=== PATIENT | male | born 1945 | race Caucasian/White ===

== ENCOUNTER 2017-05-28 10:16 | Day surgery (SDC) | payer OTHER, BC ==
[2017-05-27 13:18] VITALS: BMI 36.1
--- NOTE | 2017-05-28 10:53 | HP ---
Satellite [facility] [place] - Chief Complaint Chief Complaint: left shoulder pain - Past Medical History Allergies/Adverse Reactions: Allergies Allergy/AdvReac Type Severity Reaction Status Date / Time No Known Drug Allergies Allergy Verified 05/27/17 13:31 - Current Medications Current Medications: Home Medications Medication Instructions Recorded Candesartan Cilexetil [Atacand] 8 mg PO HS 10/10/13 Insulin Glargine,Hum.rec.anlog 35 units SQ HS 10/10/13 [Lantus Solostar PEN -] Insulin Lispro [Humalog] 15 units SQ TID PRN 10/10/13 Aspirin [ASA -] 81 mg PO DAILY #0 tab.chew 10/13/13 Folic Acid/Vitamin B Comp W-C 0.8 mg PO DAILY 03/05/15 [Renavit Tablet] Furosemide [Lasix -] 20 mg PO DAILY 03/05/15 Levothyroxine [Synthroid -] 75 mcg PO DAILY 03/05/15 Metoprolol Tartrate [Lopressor] 100 mg PO DAILY 03/05/15 Pregabalin [Lyrica -] 100 mg PO BID 03/05/15 Rosuvastatin Calcium [Crestor] 20 mg PO HS 03/05/15 Tamsulosin HCl [Flomax] 0.4 mg PO DAILY 03/05/15 Allopurinol [Zyloprim -] 100 mg PO HS 05/27/17 Cholecalciferol (Vitamin D3) 50,000 unit PO WEEKLY 05/27/17 [D3-50] Satellite Physical Exam - Physical Examination Vital Signs: Vital Signs Period Temp Pulse Resp BP Sys/Harris Pulse Ox Last 24 Hr 98.5 F 89 18 128/66 96 Extremities: Other (weakness with thumb down abduction) Satellite Impression/Plan - Impression/Plan Impression: left rotator cuff tear Operative Procedure: arthroscopy left shoulder with rotator cuff repair Date to be Performed: 05/28/17
[2017-05-28] MEDS ORDERED: ROPIVACAINE HCL 0.5% 30ML VIAL ONE (10:56)
[2017-05-28] MEDS ORDERED: MIDAZOLAM HCL 2 MG/2 ML SINGLE DOSE VIAL ONE ×2 (10:58)
[2017-05-28] MEDS ORDERED: ceFAZolin SODIUM 1 GM VIAL IVPB ONE (12:15)
[2017-05-28] MEDS ORDERED: PROPOFOL 20 ML ONE (12:35)
[2017-05-28] MEDS ORDERED: ceFAZolin SODIUM 1 GM VIAL ONE ×3 (12:50→16:37)
[2017-05-28] MEDS ORDERED: LIDOCAINE HCL/PF 2% SDV 5ML VIAL ONE ×2 (12:58→13:05)
[2017-05-28] MEDS ORDERED: DEXAMETHASONE SOD PHOSPHATE 4 MG/1 ML VIAL ONE (13:05)
[2017-05-28] MEDS ORDERED: ePHEDrine SULFATE 50 MG/1 ML AMPULE ONE (13:10)
--- NOTE | 2017-05-28 13:39 | OP ---
Operative Note - Note: Operative Date: 05/28/17 ([facility]) Pre-Operative Diagnosis: left shoulder rct Operation: left shoulder arthroscopy with RCR, SAD Implants: arthrex speedbridge Post-Operative Diagnosis: Same as Pre-op Surgeon: Quincy Corona Supervisor Production: Foreign Mendoza Anesthesiologist/SKIVER BOX TOE: Sundeep López Anesthesia: General, Local Specimens Removed: shavings Estimated Blood Loss (mls): 5 Operative Report Dictated: Yes
[2017-05-28 17:19] VITALS: BP 122/68; PULSE 88
[2017-05-28 17:57] VITALS: TEMP 97.4
--- NOTE | 2017-06-01 12:52 | SPEC ---
DATE OF OPERATION: 05/28/2017 PREOPERATIVE DIAGNOSIS: Left rotator cuff tear. POSTOPERATIVE DIAGNOSIS: Left rotator cuff tear. PROCEDURE: Left shoulder arthroscopy, subacromial decompression, and SpeedBridge rotator cuff repair. SURGICAL ATTENDING: Quincy Corona MD RN NEUROLOGY: ANITA Martinez ANESTHESIA: Regional and general. CLOSURE: A SpeedBridge for rotator cuff and 3-0 nylon for skin. ESTIMATED BLOOD LOSS: Negligible. COMPLICATIONS: None. CONDITION: To the recovery room in stable condition. DESCRIPTION OF PROCEDURE: The patient was taken to the operating room on May 28, 2017. General and regional anesthesia was administered by the anesthesiologist. IV Kefzol was administered prophylactically prior to the case. The patient was placed in the beach chair position with all prominences well padded. The left shoulder area was prepped and draped in the usual sterile fashion. First, a diagnostic arthroscopy of the glenohumeral joint was made. Posterior portal was made 2 fingerbreadths below the acromion with a 15 blade followed by a blunt trocar. Circumferential exam of the glenohumeral joint revealed the following: Intact labrum circumferentially, intact glenoid and humeral head articular cartilage, intact biceps and biceps anchor, intact subscapularis through its insertion. Looking superiorly, there was a large rotator cuff tear. The fluid was drained from the shoulder, and the trocar was removed. The posterior trocar was redirected in the subacromial space. An accessory lateral and anterior portal were made with a 15 blade followed by a blunt trocar. The lateral portal was used as the working portal. Through this portal, an ArthroCare device was applied. This was used to debride the soft tissue in the subacromial aspect. The coracoacromial ligament was identified and detached off the anterior acromion and was visualized to drop inferiorly and was further debrided. The bone on the undersurface of the acromion was burred to the appropriate level giving appropriate height for the rotator cuff beneath. Looking inferiorly, there was a large rotator cuff tear, soft tissue encasing the rotator cuff, and the deltoid recess was debrided using ArthroCare device and the shaver. The bed on the greater tuberosity was burred to give a good bed for the double row SpeedBridge repair. A grasper was used to ensure that the rotator cuff was able to be reduced sufficiently to the greater tuberosity. The rotator cuff was freed on the bursal and the articular surface to allow more excursion of the tendon. Two anchors preloaded with FiberTape suture were placed on the articular margin, one more anteriorly, one more posteriorly. They were shuttled through the anterior portal with a grasper. Each limb was individually passed through the rotator cuff, two anteriorly and two posteriorly. One anterior limb and one posterior limb was delivered through the lateral portal. They were placed through the eyelet hole of the more lateral anchor, which was then malleted into place much more laterally, reducing the rotator cuff to the greater tuberosity. The swivel was then screwed into place. The sutures were then cut flush with the bone. Next, one anterior and one posterior limb that was remaining were shuttled from the anterior to the lateral portal. The sutures were placed through the eyelet hole of the anterior anchor, which was malleted on the anterior aspect of the greater tuberosity. After tensioning it, it was deployed the entire way and then screwed home giving an excellent reduction to the anterior portion of the rotator cuff. After the sutures were cut, the rotator cuff was probed and found to have good stability with excellent matting down of the rotator cuff to the greater tuberosity. The shoulder was taken through the range of motion and found to have good clearance on the undersurface of the acromion with good, solid repair. The shoulder was drained of the fluid. The portals were closed with 3-0 nylon suture. A sterile pressure dressing followed by a shoulder immobilizer was applied. The patient was awoken from anesthesia and transferred to recovery room in stable condition. No complications. Estimated blood loss negligible. Gabriella [id number]
--- NOTE | 2017-06-01 16:53 | PATH ---
Surgical Pathology Report Patient Name: MARY SAMANO Med. Rec. #: [id number] /Age/Gender: 1945 (Age: 72) / M Account: [id number] Location: [facility] SUR[facility] Taken: 05/28/2017 Received: 05/31/2017 Reported: 06/01/2017 Physicians: Quincy Corona M.D. Specimen(s) Received LEFT SHOULDER SHAVINGS Clinical History Left shoulder impingement syndrome/rotator cuff tear Final Diagnosis SHOULDER SHAVINGS, LEFT, ARTHROSCOPY: BENIGN FIBROCARTILAGINOUS TISSUE AND SYNOVIUM. Electronically Signed Patito Duque M.D. Gross Description Received in formalin, labeled "left shoulder shavings," is a 5.0 x 3.7 x 0.5 cm. aggregate of lam-yellow soft tissue fragments. A admitting representative portion is submitted in one cassette. /05/31/201705/31/2017
== END 2017-05-28 17:22 | disposition home or self-care (01) ==
LOC: JASU-SURG 10:16
PROVIDERS: ATTEND Orthopaedic Surgery
PROC: 0LQ24ZZ Repair Left Shoulder Tendon, Percutaneous Endoscopic Approach (ICD-10-PCS; 2017-05-28)
PROC: 0RNK4ZZ Release Left Shoulder Joint, Percutaneous Endoscopic Approach (ICD-10-PCS; principal; 2017-05-28 10:45)
DX: M75.102 Unspecified rotator cuff tear or rupture of left shoulder, not specified as traumatic (principal)
CPT/HCPCS: 88304-TC; 94760

== ENCOUNTER 2018-10-05 08:31 | Day surgery (SDC) | payer OTHER ==
[2018-10-04 14:06] VITALS: BMI 36.8
--- NOTE | 2018-10-05 09:12 | HP ---
Satellite H - Chief Complaint Chief Complaint: right hand pain/numbness - Past Medical History Allergies/Adverse Reactions: Allergies Allergy/AdvReac Type Severity Reaction Status Date / Time No Known Drug Allergies Allergy Verified 10/05/18 08:48 - Current Medications Current Medications: Home Medications Medication Instructions Recorded Candesartan Cilexetil [Atacand] 8 mg PO HS 10/10/13 Insulin Glargine,Hum.rec.anlog 30 units SQ ASDIR 10/10/13 [Lantus Solostar PEN -] Insulin Lispro [Humalog] 15 units SQ TID PRN 10/10/13 Aspirin [ASA -] 81 mg PO DAILY #0 tab.chew 10/13/13 Furosemide [Lasix -] 20 mg PO DAILY 03/05/15 Levothyroxine [Synthroid -] 88 mcg PO DAILY 03/05/15 Metoprolol Tartrate [Lopressor] 50 mg PO DAILY 03/05/15 Pregabalin [Lyrica -] 100 mg PO BID 03/05/15 Rosuvastatin Calcium [Crestor] 20 mg PO HS 03/05/15 Tamsulosin HCl [Flomax -] 0.4 mg PO DAILY 03/05/15 Allopurinol [Zyloprim -] 100 mg PO HS 05/27/17 Cholecalciferol (Vitamin D3) 50,000 unit PO WEEKLY 05/27/17 [D3-50] Folic Acid/Vit B Complex and C 0.8 mg PO DAILY 10/05/18 [Miesha-Jasmine Tablet] Hydrocodone/Acetaminophen 1 each PO Q6H #20 tablet MDD 4 10/05/18 [Hydrocodone-Acetamin 5-325 mg] Satellite Physical Exam - Physical Examination Vital Signs: Vital Signs Period Temp Pulse Resp BP Sys/Harris Pulse Ox Last 24 Hr 98.1 F 62 16 117/81 98 General Appearance: Well Nourished, Well Developed, Alert & Oriented x3 ENT: Clear Lung: Normal air movement Heart: Regular rate & rhythm Extremities: Other (right hand- + phalnes, + tinels EMG + CTS) Neurological: Intact, Alert, Oriented Satellite Impression/Plan - Impression/Plan Impression: right cts Operative Procedure: right ctr Date to be Performed: 10/05/18
[2018-10-05] MEDS ORDERED: LIDOCAINE HCL 1%, 10 MG/ML (20ML VIAL) ONE (09:39)
[2018-10-05] MEDS ORDERED: ceFAZolin SODIUM 1 GM VIAL IVPB ONE (11:25)
[2018-10-05] MEDS ORDERED: PROPOFOL 20 ML ONE (11:28)
[2018-10-05] MEDS ORDERED: MIDAZOLAM HCL 2 MG/2 ML SINGLE DOSE VIAL ONE (11:28)
--- NOTE | 2018-10-05 12:22 | OP ---
Operative Note - Note: Operative Date: 10/05/18 Pre-Operative Diagnosis: right CTS Operation: right CTR Post-Operative Diagnosis: Same as Pre-op Surgeon: Zach Talbot Anesthesiologist/ANALOG CIRCUIT DESIGNER: Stacy Rodriguez Anesthesia: Local, MAC Specimens Removed: tenosynovium Estimated Blood Loss (mls): 0 Drains, Volume Out (mls): 0 Blood Volume Replaced (mls): 0 Fluid Volume Replaced (mls): 500 Operative Report Dictated: Yes
[2018-10-05] MEDS ORDERED: LACTATED RINGERS SOLUTION 1,000 ML IV SCH (12:45)
[2018-10-05 14:59] VITALS: BP 124/64; PULSE 60; TEMP 97.9
--- NOTE | 2018-10-06 15:22 | SPEC ---
DATE OF OPERATION: 10/05/2018 PREOPERATIVE DIAGNOSIS: Right carpal tunnel syndrome and tenosynovitis. POSTOPERATIVE DIAGNOSIS: Right carpal tunnel syndrome and tenosynovitis. OPERATION: Right carpal tunnel release and tenosynovectomy. SURGEON: Mari Pearson M.D. ASSISTANTS: None. ANESTHESIA: MAC, local injection with 10 mL of 0.5% Marcaine and 1% Lidocaine mix. EMS MANAGER: VIKTOR Rodriguez DRAINS: None. COMPLICATIONS: None. SPECIMENS: Tenosynovium, right wrist. BLOOD LOSS: None. BLOOD GIVEN: None. FLUID REPLACEMENT: 500 mL. INDICATIONS: This patient is a 73-year-old male with a preoperative diagnosis of severe right carpal tunnel syndrome. We had extensive preoperative discussions about his carpal tunnel syndrome. He is an insulin-dependent diabetic. 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 He understands these are all strikes against him. I do not expect all of his pain symptoms, especially numbness, to go away. His numbness may not improve at all. He understands the potential risks, complications, alternatives and benefits of surgery versus and had elected to go forward with surgery. DESCRIPTION OF PROCEDURE: The patient was brought to the operating room, peripheral IV placed and intravenous sedation was given. One gram of intravenous Ancef was given. MAC anesthesia was induced. A tourniquet was applied to the right upper arm and the right upper extremity was prepped and draped in sterile fashion. The entire case was done under 3.8 loupe magnification. A marking pen was utilized to whit out a longitudinal incision in an already existing skin crease. Twenty mL of 0.5% Marcaine mixed with 1% Lidocaine was injected in and around the surgical incision. The right upper extremity was elevated, exsanguinated with an Esmarch bandage and the tourniquet inflated to 250 mmHg. A No. 15 scalpel blade was utilized to cut down through the skin. Subcutaneous hemostasis was achieved with the bipolar cautery. Dissection was done through the superficial palmar fascia. Self-retaining retractors were placed into the wound. Under direct visualization, the transverse carpal ligament was transected with a No. 15 scalpel blade, exposing the median nerve and the contents of the carpal tunnel. The distal and proximal extents of the release were completed with a Littler scissor and checked with irrigation and my small finger. They were seen to be complete. Limited dissection was done on the radial side of the median nerve and more extensive dissection was done on the ulnar side of the median nerve. The patients nerve was seen to be quite compressed by epineurium and therefore a limited epineurotomy was performed. A Ragnell retractor was used to gently retract the median nerve in a radial direction. The patient had a lot of tenosynovitis and therefore a tenosynovectomy was performed off all 9 flexor tendons. This was passed off the field as tenosynovium right wrist. The floor of the carpal tunnel was checked. There were no abnormal masses or ganglion cysts. The area was copiously irrigated and washed out and closure begun. Undyed 4-0 Vicryl was used to close the deep dermal layer. Final skin reapproximation was done with horizontal mattress 4-0 nylon sutures. The area was then washed and dried, covered with Xeroform, 4x4s, fluffs between the fingers, Webril and a 4-inch plaster roll was utilized to make a volar splint, which was then wrapped with Rebecca and Coban. The tourniquet was taken down after a total tourniquet time of 21 minutes. There were no complications during the case. The patient tolerated the procedure well and was brought to the ambulatory recovery room in stable condition. MARI PEARSON M.D. [id number]
--- NOTE | 2018-10-07 15:47 | PATH ---
Surgical Pathology Report Patient Name: MARY SAMANO [facility]. Rec. #: [id number] /Age/Gender: 1945 (Age: 73) / M Account: [id number] Location: [facility] Taken: 10/05/2018 Received: 10/05/2018 Reported: 10/07/2018 Physicians: Zach Talbot M.D. Specimen(s) Received TENOSYNOVIUM Clinical History Right carpal Tunnel Final Diagnosis RIGHT TENOSYNOVIUM, EXCISION: FIBROCONNECTIVE TISSUE WITH FIBROSIS AND DEGENERATIVE CHANGE. Electronically Signed Symone Mcneill M.D. Gross Description Received in formalin labeled "right tenosynovium," is a 1.7 x 1.5 x 0.3 cm aggregate of lam-yellow, irregular portions of soft tissue, consistent with tenosynovium. The specimen is submitted in toto in one cassette. /10/06/201810/06/2018
== END 2018-10-05 14:30 | disposition home or self-care (01) ==
LOC: JASU-SURG 08:31
PROVIDERS: ATTEND Orthopaedic Surgery
PROC: 01N50ZZ Release Median Nerve, Open Approach (ICD-10-PCS; principal; 2018-10-05 10:30)
DX: G56.01 Carpal tunnel syndrome, right upper limb (principal); M65.9 Synovitis and tenosynovitis, unspecified; I10 Essential (primary) hypertension; E11.9 Type 2 diabetes mellitus without complications; Z79.84 Long term (current) use of oral hypoglycemic drugs
CPT/HCPCS: 82962; 88304-TC; 94760

== ENCOUNTER 2020-04-16 14:57 | Emergency (ER) | payer OTHER ==
[2020-04-16 15:17] VITALS: BP 95/53; PULSE 73; TEMP 97.6; BMI 34.0
--- NOTE | 2020-04-16 16:09 | PDOC ---
History of Present Illness - General Chief Complaint: Pain Stated Complaint: ABD PAIN Time Seen by Provider: 04/16/20 15:36 - History of Present Illness Initial Comments: 04/16/20 16:08 74yo male with PMH of CAD (s/p 2 stents), HTN, HLD, hypothyroidism, IDDM, gout, gastric ulcer, presents to the ED with 3 weeks of suprapubic pain and constipation. Describes the pain as "pinching" and intermittent. Also reports pain with urination, ~10lb unintentional weight loss, night sweats, chills. Reports chronic hip pain. Denies fever, urinary incontinence/retention, numbness/tingling, weakness. Last BM yesterday, normal. Passing gas and tolerating PO. Last colonoscopy ~10 years ago and reportedly normal. Reports going to urgent care with these complaints and having normal labs and UA. PMH/PSH: as above Home Medications Medication Instructions Recorded Candesartan Cilexetil [Atacand] 8 mg PO HS 10/10/13 Insulin Glargine,Hum.rec.anlog 30 units SQ ASDIR 10/10/13 [Lantus Solostar PEN -] Insulin Lispro [Humalog] 15 units SQ TID PRN 10/10/13 Aspirin [ASA -] 81 mg PO DAILY #0 tab.chew 10/13/13 Furosemide [Lasix -] 20 mg PO DAILY 03/05/15 Levothyroxine [Synthroid -] 88 mcg PO DAILY 03/05/15 Metoprolol Tartrate [Lopressor] 50 mg PO DAILY 03/05/15 Pregabalin [Lyrica -] 100 mg PO BID 03/05/15 Rosuvastatin Calcium [Crestor] 20 mg PO HS 03/05/15 Tamsulosin HCl [Flomax -] 0.4 mg PO DAILY 03/05/15 Allopurinol [Zyloprim -] 100 mg PO HS 05/27/17 Cholecalciferol (Vitamin D3) 50,000 unit PO WEEKLY 05/27/17 [D3-50] Folic Acid/Vit B Complex and C 0.8 mg PO DAILY 10/05/18 [Miesha-Jasmine Tablet] Hydrocodone/Acetaminophen 1 each PO Q6H #20 tablet MDD 4 10/05/18 [Hydrocodone-Acetamin 5-325 mg] Allergies Allergy/AdvReac Type Severity Reaction Status Date / Time No Known Drug Allergies Allergy Verified 04/16/20 15:17 ROS GENERAL/CONSTITUTIONAL: No fever. chills. No weakness. HEAD, EYES, EARS, NOSE AND THROAT: No change in vision. No ear pain or discharge. No sore throat. CARDIOVASCULAR: No chest pain or shortness of breath RESPIRATORY: No cough, wheezing, or hemoptysis. GASTROINTESTINAL: nausea, constipation. GENITOURINARY: pain with urination, no hematuria MUSCULOSKELETAL: chronic low back and hip pain SKIN: No rash NEUROLOGIC: No headache, vertigo, loss of consciousness, or change in strength/sensation. ENDOCRINE: No increased thirst. weight loss HEMATOLOGIC/LYMPHATIC: No anemia, easy bleeding, or history of blood clots. ALLERGIC/IMMUNOLOGIC: No hives or skin allergy. PE GENERAL: Awake, alert, and fully oriented, in no acute distress HEAD: No signs of trauma, normocephalic, atraumatic EYES: PERRLA, EOMI, sclera anicteric, conjunctiva clear ENT: Auricles normal inspection, hearing grossly normal, nares patent, oropharynx clear without exudates. Moist mucosa NECK: Normal ROM, supple, no lymphadenopathy, JVD, or masses LUNGS: No distress, speaks full sentences, clear to auscultation bilaterally HEART: Regular rate and rhythm, normal S1 and S2, no murmurs, rubs or gallops, peripheral pulses normal and equal bilaterally. ABDOMEN: Soft, defuse tenderness, worse suprapubically. No guarding, no rebound. EXTREMITIES : Normal inspection, Normal range of motion, no edema. No clubbing or cyanosis. NEUROLOGICAL: Normal speech, no focal sensorimotor deficits SKIN: Warm, Dry, normal turgor, no rashes or lesions noted Vital Signs Temp Pulse Resp BP Pulse Ox 97.6 F 73 18 95/53 L 96 04/16/20 15:15 04/16/20 15:15 04/16/20 15:15 04/16/20 15:15 04/16/20 15:15 MDM: 74yo male with PMH of CAD (s/p 2 stents), HTN, HLD, hypothyroidism, IDDM, gout, gastric ulcer, presents to the ED with 3 weeks of suprapubic pain, dysuria, constipation, weight loss, chills, and night sweats. Abdominal exam not concerning, but there is some tenderness, worse suprapubically. DDx includes mass, colitis, pancreatitis, diverticulitis, UTI. -EKG -CBC, CMP, lipase, UA/UC 04/16/20 20:07 EKG: NSR with first degree AV block, rate 73, LAD, non-specific intraventricular block (QRS 154), QTc 473, no ischemic ST-T changes Laboratory 04/16/20 04/16/20 04/16/20 16:15 16:15 17:25 WBC 11.4 K/mm3 H K/mm3 (4.0-10.0) RBC 4.20 M/mm3 M/mm3 (4.00-5.60) Hgb 13.0 GM/dL GM/dL (11.7-16.9) Hct 38.7 % % (35.4-49) MCV 92.0 fl fl (80-96) MCH 30.9 pg pg (25.7-33.7) MCHC 33.6 g/dl g/dl (32.0-35.9) RDW 14.3 % % (11.9-15.9) Plt Count 210 K/MM3 K/MM3 (134-434) MPV 9.0 fl fl (7.5-11.1) Absolute Neuts (auto) 9.4 K/mm3 H K/mm3 (1.5-8.0) Neutrophils % 83.0 % H % (42.8-82.8) Lymphocytes % 9.1 % D % (8-40) Monocytes % 6.5 % D % (3.8-10.2) Eosinophils % 0.9 % D % (0-4.5) Basophils % 0.5 % D % (0-2.0) Nucleated RBC % 0 % % (0-0) Sodium 138 mmol/L mmol/L (136-145) Potassium 4.7 mmol/L mmol/L (3.5-5.1) Chloride 107 mmol/L mmol/L (98-107) Carbon Dioxide 25 mmol/L mmol/L (21-32) Anion Gap 6 MMOL/L L MMOL/L (8-16) BUN 46.8 mg/dL H mg/dL (7-18) Creatinine 2.5 mg/dL H mg/dL (0.55-1.3) Est GFR (CKD-EPI)AfAm 28.26 Est GFR (CKD-EPI)NonAf 24.38 Random Glucose 142 mg/dL H mg/dL (74-106) Calcium 8.8 mg/dL mg/dL (8.5-10.1) Total Bilirubin 0.8 mg/dL mg/dL (0.2-1) AST 73 U/L H U/L (15-37) ALT 66 U/L H U/L (13-61) Alkaline Phosphatase 93 U/L U/L (45-117) Total Protein 7.8 g/dl g/dl (6.4-8.2) Albumin 3.4 g/dl g/dl (3.4-5.0) Lipase 116 U/L U/L (73-393) Urine Color Yellow Urine Appearance Clear Urine pH 5.0 (5.0-8.0) Ur Specific [place] 1.014 (1.010-1.035) Urine Protein Trace (NEGATIVE) Urine Glucose (UA) Negative (NEGATIVE) Urine Ketones Negative (NEGATIVE) Urine Blood Trace (NEGATIVE) Urine Nitrite Negative (NEGATIVE) Urine Bilirubin Negative (NEGATIVE) Urine Urobilinogen 0.2 mg/dL mg/dL (0.2-1.0) Ur Leukocyte Esterase Negative (NEGATIVE) Urine WBC (Auto) 4 /uL /uL (0-25.8) Urine RBC (Auto) 10 /uL /uL (0-23.9) Urine Casts (Auto) 2 /uL /uL (0-3.1) U Epithel Cells (Auto) 6 /uL /uL (0-25.1) Urine Bacteria (Auto) 4 /uL /uL (0-1359) CT scan of the abdomen pelvis without oral and intravenous contrast Coronal and sagittal reformatted images were obtained Comparison: Prior CT scan of the chest dated 08/07/2013 as well as abdomen and pelvic ultrasound dated 01/05/2020 There are mild atelectatic changes and air bronchogram in the right lung base, over the right hemidiaphragm that is significantly elevated the reaching the level of the right hilum. The heart is within normal limits in size. Calcification of the coronary arteries are present The liver is small with a homogeneous echotexture. Evaluation of the gallbladder, spleen, pancreas, both adrenal glands and the right kidney appear unremarkable. Left renal lower pole exophytic cyst measuring 4.6 cm. Partially distended stomach limiting evaluation of its wall without gross thickening. There is no evidence of small bowel obstruction. Normal- appearing terminal ileum and appendix. Normal amount of stool in the colon. There are multiple diverticula mainly in the sigmoid colon. There is thickening of the mid sigmoid colon wall with mild stranding of the surrounding fat consistent with mild acute diverticulitis no extraluminal air or abscess formation is identified. Partially distended urinary bladder without wall thickening. Slightly prominent prostate gland. Perirectal and pericecal fat are clear Partially included right scrotal hydrocele There is grade 1 anterolisthesis of L5 over S1 of approximately 12 mm with marked degenerative disc disease and bilateral spondylolysis of L5 pars interarticulares. Mild-to- moderate osteoarthritic changes involving the left hip joint and mild osteoarthritic changes involving the right. Impression: See discussion above. Mild acute diverticulitis involving the mid sigmoid colon without gross extravasation of air or abscess formation. Follow-up CT scan is needed. Colon oscopy is suggested when the patient's condition permits to rule out any underlying infiltrative process. 04/17/20 14:33 Will treat with metronidazole and bactrim for mild acute diverticulitis. GI referral and PCP follow up. DC home Past History - Medical History Allergies/Adverse Reactions: Allergies Allergy/AdvReac Type Severity Reaction Status Date / Time No Known Drug Allergies Allergy Verified 04/16/20 15:17 Home Medications: Ambulatory Orders Candesartan Cilexetil [Atacand] 8 mg PO HS 10/10/13 Insulin Glargine,Hum.rec.anlog [Lantus Solostar PEN -] 30 units SQ ASDIR 0 10/10/13 Insulin Lispro [Humalog] 15 units SQ TID PRN 10/10/13 Aspirin [ASA -] 81 mg PO DAILY #0 tab.chew 10/13/13 Furosemide [Lasix -] 20 mg PO DAILY 03/05/15 Levothyroxine [Synthroid -] 88 mcg PO DAILY 03/05/15 Metoprolol Tartrate [Lopressor] 50 mg PO DAILY 03/05/15 Pregabalin [Lyrica -] 100 mg PO BID 03/05/15 Rosuvastatin Calcium [Crestor] 20 mg PO HS 03/05/15 Tamsulosin HCl [Flomax -] 0.4 mg PO DAILY 03/05/15 Allopurinol [Zyloprim -] 100 mg PO HS 05/27/17 Cholecalciferol (Vitamin D3) [D3-50] 50,000 unit PO WEEKLY 05/27/17 Folic Acid/Vit B Complex and C [Miesha-Jasmine Tablet] 0.8 mg PO DAILY 10/05/18 Hydrocodone/Acetaminophen [Hydrocodone-Acetamin 5-325 mg] 1 each PO Q6H #20 tablet MDD 4 10/05/18 Metronidazole 500 mg PO TID 7 Days #21 tablet 04/16/20 Sulfamethoxazole/Trimethoprim [Bactrim Ds -] 1 tab PO BID 7 Days #14 tablet 04/16/20 Anemia: No Asthma: No Cancer: No Cardiac Disorders: Yes (2 STENTS 2004) CVA: No COPD: No CHF: No Dementia: No Diabetes: Yes GI Disorders: No Disorders: No HTN: Yes Hypercholesterolemia: Yes Liver Disease: No Seizures: No Thyroid Disease: Yes - Surgical History Cardiac Surgery: Yes (STENTSX2) Orthopedic Surgery: Yes (RIGHT SHOULDER & RIGHT KNEE) - Psycho-Social/Smoking History Smoking Status: No Smoking History: Never smoked Have you smoked in the past 12 months: No Number of Cigarettes Smoked Daily: 0 If you are a former smoker, when did you quit?: 50YRS AGO *Physical Exam - Vital Signs Last Vital Signs Temp Pulse Resp BP Pulse Ox 97.6 F 73 18 95/53 L 96 04/16/20 15:15 04/16/20 15:15 04/16/20 15:15 04/16/20 15:15 04/16/20 15:15 ED Treatment Course - LABORATORY CBC & Chemistry Diagram: 04/16/20 16:15 04/16/20 16:15 - RADIOLOGY Radiology Studies Ordered: Category Date Time Status ABDOMEN & PELVIS CT WITH CONTR [CT] Stat CT Scan 04/16/20 16:07 Ordered Discharge - Discharge Information Problems reviewed: Yes Clinical Impression/Diagnosis: Diverticulitis Condition: Fair Disposition: HOME - Additional Discharge Information Prescriptions: Sulfamethoxazole/Trimethoprim [Bactrim Ds -] 1 tab PO BID 7 Days #14 tablet Metronidazole 500 mg PO TID 7 Days #21 tablet - Follow up/Referral Referrals: Spenser Lao [Primary Care Provider] - Sekou Nelson MD [Staff Physician] - Paulino Zapata MD [Staff Physician] - Huy Alvarado DO [Staff Physician] - - Patient Discharge Instructions Patient Printed Discharge Instructions: DI for Diverticulitis, DI for Spondylolisthesis Additional Instructions: You were seen in the ER for abdominal pain. We did an EKG, labs, and a CT scan. The CT scan showed diverticulitis, which is likely the cause of your abdominal pain. We sent antibiotics to your pharmacy. Please follow up with your primary doctor within three days. We also gave you a referral to three GI doctors, as you may benefit from an outpatient colonoscopy. You CT also showed an abnormality in your spine, spondilolisthesis, for which you should also follow up with your primary doctor. You labs showed evidence of infection, chronic kidney disease, and elevated liver enzymes, for which you should also follow up with your primary doctor. Please return to the ER if you have new, continued, or worsening symptoms, fever, severe abdominal pain, blood in your stool, or any other reason. - Post Discharge Activity
--- NOTE | 2020-04-16 16:37 | PDOC ---
Attending Attestation - Resident Resident Name: Otis Gonzalez - ED Attending Attestation I have performed the following: I have examined & evaluated the patient, The case was reviewed & discussed with the resident, I agree w/resident's findings & plan - HPI HPI: 04/16/20 16:28 74-year-old male with history of hypertension, diabetes, high cholesterol, CAD status post 2 stents in the past presents with 1 month of ongoing lower abdominal pain. Patient reports daily constant lower abdominal discomfort, associated with some constipation but no hematochezia or melena, some dysuria but no frequency or sensation of incomplete emptying. Describes nighttime chills but no measured fevers, slightly decreased diet over the last month with 10 pound weight loss. Last colonoscopy was as scheduled 10 years ago and within normal limits, routine follow-up was delayed secondary to COVID. Denies any smoking history or alcohol history, no abdominal surgical history, presents for evaluation today because the pain was slightly worse this afternoon. - Physicial Exam PE: 04/16/20 16:29 Afebrile, vital signs stable Well-appearing lying comfortably in stretcher, pleasant gentleman in no acute distress No jaundice or pallor, neck supple Heart is regular, lungs are clear Abdomen is soft/nondistended. Discomfort to palpation in the left lower quadrant without guarding or rebound, no palpable hernia, no CVA tenderness. - Medical Decision Making 04/16/20 16:30 74-year-old male h/o HTN and CAD with stents presents with 1 month of constant lower abdominal pain with constipation and some dysuria. Exam seems to localize the left lower quadrant, no peritoneal findings. Potential red flags of chills with sweats at night, decreased appetite and weight loss. Hemodynamically stable otherwise. Differential includes GI etiology such as colitis (question infectious versus ischemic versus neoplastic) versus versus hernia. Seems less likely vascular, but given history it is still on the differential. Check labs, urinalysis CT of the abdomen and pelvis with IV contrast Reassess and disposition accordingly Discharge - Discharge Information Problems reviewed: Yes Clinical Impression/Diagnosis: Lower abdominal pain Condition: Good - Follow up/Referral Referrals: Spenser Lao [Primary Care Provider] - - Patient Discharge Instructions - Post Discharge Activity
[2020-04-16] MEDS ORDERED: SODIUM CHLORIDE 0.9% 500 ML INFUS.BAG IV ONE (16:38)
[2020-04-16 16:46] LABS: BASO % 0.5 % (0-2.0); EOS % 0.9 % (0-4.5); HEMATOCRIT 38.7 % (35.4-49); LYMPH % 9.1 % (8-40); MCH 30.9 pg (25.7-33.7); MCHC 33.6 g/dl (32.0-35.9); MONO % 6.5 % (3.8-10.2); PLATELET COUNT 210 K/MM3 (134-434); RDW 14.3 % (11.9-15.9); WHITE BLOOD COUNT 11.4 K/mm3 (4.0-10.0)
[2020-04-16 17:12] LABS: ALBUMIN 3.4 g/dl (3.4-5.0); BILIRUBIN,TOTAL 0.8 mg/dL (0.2-1); BLOOD UREA NITROGEN 46.8 mg/dL (7-18); CALCIUM 8.8 mg/dL (8.5-10.1); CREATININE 2.5 mg/dL (0.55-1.3); POTASSIUM 4.7 mmol/L (3.5-5.1); TOT PROT 7.8 g/dl (6.4-8.2)
[2020-04-16 19:16] LABS: EPI CELLS 6 /uL (0-25.1); HYALINE CASTS 2 /uL (0-3.1); URINE APPEARANCE CLEAR; URINE BACTERIA 4 /uL (0-1359); URINE BILIRUBIN NEGATIVE (NEGATIVE); URINE COLOR YELLOW; URINE GLUCOSE (UA) NEGATIVE (NEGATIVE); URINE KETONE NEGATIVE (NEGATIVE); URINE LEUK ESTERASE NEGATIVE (NEGATIVE); URINE NITRITE NEGATIVE (NEGATIVE); URINE PROTEIN TRACE (NEGATIVE); URINE RBC 10 /uL (0-23.9); URINE UROBILINOGEN 0.2 mg/dL (0.2-1.0); URINE WBC 4 /uL (0-25.8)
[2020-04-16] MEDS ORDERED: SULFAMETHOXAZOLE/TRIMETHOPRIM 800MG/160MG D.S. TABLET PO ONE (20:37)
[2020-04-16] MEDS ORDERED: metroNIDAZOLE 250 MG TABLET PO ONE (20:51)
[2020-04-16] MEDS ORDERED: SULFAMETHOXAZOLE/TRIMETHOPRIM 800MG/160MG D.S. TABLET ONE (20:54)
[2020-04-16] MEDS ORDERED: metroNIDAZOLE 250 MG TABLET ONE (20:54)
--- NOTE | 2020-04-17 09:06 | EKG ---
Test Reason : Blood Pressure : / mmHG Vent. Rate : 073 BPM Atrial Rate : 073 BPM P-R Int : 242 ms QRS Dur : 154 ms QT Int : 430 ms P-R-T Axes : 065 -65 062 degrees QTc Int : 473 ms SINUS RHYTHM WITH 1ST DEGREE A-V BLOCK LEFT AXIS DEVIATION NON-SPECIFIC INTRA-VENTRICULAR CONDUCTION BLOCK ABNORMAL ECG WHEN COMPARED WITH ECG OF 11-OCT-2013 08:51, PREMATURE VENTRICULAR COMPLEXES ARE NO LONGER PRESENT VA INTERVAL HAS INCREASED NON-SPECIFIC INTRA-VENTRICULAR CONDUCTION BLOCK HAS REPLACED LEFT BUNDLE BRANCH BLOCK Confirmed by MD YANG, MARIE ([id number]) on 04/17/2020 9:06:13 AM Referred By: Confirmed By:MARIE SORIA MD
== END 2020-04-16 21:05 | disposition home or self-care (01) ==
LOC: JER 14:57
DX: K57.92 Diverticulitis of intestine, part unspecified, without perforation or abscess without bleeding (principal)
CPT/HCPCS: 36415; 74176-TC; 80053; 81003; 83690; 85025; 87086; 93005; 93010; 99285-25

== ENCOUNTER 2021-04-15 06:51 | Inpatient (IN) | payer OTHER ==
[2021-04-15 07:57] VITALS: BMI 36.9
[2021-04-15] MEDS: CELECOXIB 200 MG CAPSULE PO ONE ×2 (08:05→16:10)
[2021-04-15] MEDS ORDERED: BUPIVACAINE HCL/PF 0.5% (5MG/ML) 10 ML VIAL ONE (09:16)
[2021-04-15] MEDS ORDERED: MIDAZOLAM HCL 2 MG/2 ML SINGLE DOSE VIAL ONE (09:16)
[2021-04-15] MEDS ORDERED: LIDOCAINE HCL/PF 2% SDV 5ML VIAL ONE (09:18)
[2021-04-15] MEDS ORDERED: TRANEXAMIC ACID 1000 MG/10 ML VIAL IVPUSH ONE (09:30)
[2021-04-15] MEDS ORDERED: CEFAZOLIN 2 GM in DEXTROSE 5%-WATER - 50 ML IVPB ONE (09:30)
[2021-04-15] MEDS ORDERED: BUPIVACAINE HCL 50 ML ONE (09:36)
[2021-04-15] MEDS ORDERED: ceFAZolin SODIUM 1 GM VIAL ONE ×2 (09:36→10:24)
[2021-04-15] MEDS ORDERED: VANCOMYCIN 1,000 MG VIAL (RESTRICTED TO ID ONLY) ONE (09:48)
[2021-04-15] MEDS ORDERED: INSULIN LISPRO SQ PRN (10:02)
[2021-04-15] MEDS ORDERED: MAGNESIUM HYDROX 2400MG/30ML ORAL SUSPENSION 30 ML CUP PO PRN (10:04)
[2021-04-15] MEDS ORDERED: MAG HYDROX/AL HYDROX/SIMETH 30 ML UNIT-DOSE CUP PO PRN (10:04)
[2021-04-15] MEDS ORDERED: ONDANSETRON 4 MG/2 ML VIAL IVPUSH PRN (10:04)
[2021-04-15] MEDS ORDERED: TRANEXAMIC ACID 1000 MG/10 ML VIAL ONE (10:24)
[2021-04-15] MEDS ORDERED: PHENYLEPHRINE HCL 10 MG/1 ML SINGLE DOSE VIAL ONE (11:16)
[2021-04-15] MEDS ORDERED: INSULIN (NOVOLOG) ASPART 100 UNITS/ML 10ML VIAL SQ PRN (11:53)
[2021-04-15] MEDS ORDERED: ACETAMINOPHEN 1000 MG/100 ML VIAL (NON FORMULARY) IVPB ONE (12:43)
[2021-04-15] MEDS ORDERED: oxyCODONE HCL 5 MG TABLET PO PRN (12:43)
[2021-04-15] MEDS ORDERED: SODIUM CHLORIDE IVPB ONE (14:00)
[2021-04-15] MEDS ORDERED: PHENYLEPHRINE HCL IVPB ONE (14:00)
[2021-04-15] MEDS: LACTATED RINGERS SOLUTION 1,000 ML IV SCH ×3 (14:25→22:36)
[2021-04-15] MEDS: oxyCODONE HCL 5 MG TABLET PO PRN (16:33)
[2021-04-15] MEDS: CEFAZOLIN 2 GM/D5W 2 GM/50 ML ML IVPB SCH (17:22)
[2021-04-15] MEDS: INSULIN SLIDING SCALE (NOVOLOG) 1 VIAL SQ SCH (18:40)
[2021-04-15] MEDS: traMADol HCL 50 MG TABLET PO PRN (20:08)
[2021-04-15] MEDS ORDERED: PT OWN MED DRAWER 7, Y5N ONE (21:36)
[2021-04-15] MEDS: ROSUVASTATIN CA 20 MG TABLET (FP) PO SCH (21:50)
[2021-04-15] MEDS: PREGABALIN 50 MG CAPSULE PO SCH (21:50)
[2021-04-15] MEDS: INSULIN (LEVEMIR) 100 UNITS/ML UNITS SQ SCH (21:51)
[2021-04-15] MEDS: SENNOSIDES/DOCUSATE COMBO (SENNA PLUS) TABLET (UD) PO SCH (21:51)
[2021-04-15] MEDS: ACETAMINOPHEN 500 MG TABLET (FP) PO SCH (21:51)
[2021-04-15] MEDS ORDERED: CANDESARTAN CILEXETIL 4 MG PO SCH (22:00)
[2021-04-15] MEDS ORDERED: PATIENT'S OWN MEDICATION (NON-FORMULARY) (Insulin Glargine,Hum.Rec.Anlog 100 UNITS/ML Ins) SQ SCH (22:00)
[2021-04-15] MEDS ORDERED: LOSARTAN POTASSIUM 50 MG TABLET PO SCH (22:00)
[2021-04-15] MEDS: LOSARTAN POTASSIUM 50 MG TABLET PO SCH (22:55)
[2021-04-15] MEDS: ALLOPURINOL 100 MG TABLET (FP) PO SCH (23:15)
[2021-04-16] MEDS: oxyCODONE HCL 5 MG TABLET PO PRN ×3 (00:09→06:29)
[2021-04-16] MEDS: traMADol HCL 50 MG TABLET PO PRN (01:10)
[2021-04-16] MEDS: CEFAZOLIN 2 GM/D5W 2 GM/50 ML ML IVPB SCH (01:23)
[2021-04-16] MEDS: ACETAMINOPHEN 500 MG TABLET (FP) PO SCH ×3 (03:34→21:05)
[2021-04-16] MEDS: LEVOTHYROXINE NA 88 MCG TABLET (FP) PO SCH (06:29)
[2021-04-16] MEDS: INSULIN SLIDING SCALE (NOVOLOG) 1 VIAL SQ SCH ×3 (08:00→17:00)
[2021-04-16 08:15] LABS: HEMATOCRIT 32.6 % (35.4-49); HEMOGLOBIN 11.1 GM/dl (11.7-16.9); MEAN CELL VOLUME 94.4 fl (80-96); MEAN PLT VOLUME 8.7 fl (7.5-11.1); PLATELET COUNT 155 10^3/uL (134-434); RBC 3.45 M/mm3 (4.00-5.60); RDW 13.5 % (11.9-15.9); WHITE BLOOD COUNT 10.9 K/mm3 (4.0-10.8)
[2021-04-16] MEDS: ASPIRIN 325 MG TABLET PO SCH (09:49)
[2021-04-16] MEDS: SENNOSIDES/DOCUSATE COMBO (SENNA PLUS) TABLET (UD) PO SCH ×2 (09:50→21:07)
[2021-04-16] MEDS: TAMSULOSIN HCL 0.4 MG CAP PO SCH (09:50)
[2021-04-16] MEDS: PREGABALIN 50 MG CAPSULE PO SCH ×2 (09:50→21:07)
[2021-04-16] MEDS: MULTIVITAMINS (DAILY MVI) TABLET (FP) PO SCH (09:50)
[2021-04-16] MEDS: PANTOPRAZOLE 40 MG TABLET PO SCH (09:50)
[2021-04-16] MEDS: METOPROLOL TARTRATE 50 MG TABLET (FP) PO SCH (09:51)
[2021-04-16] MEDS ORDERED: METOPROLOL TARTRATE 50 MG TABLET (FP) PO SCH (10:00)
[2021-04-16] MEDS: COLCHICINE 0.6 MG CAP PO SCH (12:11)
[2021-04-16] MEDS: ALLOPURINOL 100 MG TABLET (FP) PO SCH (21:05)
[2021-04-16] MEDS: INSULIN (LEVEMIR) 100 UNITS/ML UNITS SQ SCH (21:05)
[2021-04-16] MEDS: ROSUVASTATIN CA 20 MG TABLET (FP) PO SCH (21:08)
[2021-04-16] MEDS: LOSARTAN POTASSIUM 50 MG TABLET PO SCH (21:08)
[2021-04-17] MEDS: INSULIN SLIDING SCALE (NOVOLOG) 1 VIAL SQ SCH ×3 (06:29→16:30)
[2021-04-17] MEDS: LEVOTHYROXINE NA 88 MCG TABLET (FP) PO SCH (06:29)
[2021-04-17] MEDS: ACETAMINOPHEN 500 MG TABLET (FP) PO SCH ×3 (06:29→16:29)
[2021-04-17] MEDS: ASPIRIN 325 MG TABLET PO SCH (08:17)
[2021-04-17] MEDS: TAMSULOSIN HCL 0.4 MG CAP PO SCH (08:17)
[2021-04-17 08:45] LABS: HEMOGLOBIN 10.1 GM/dl (11.7-16.9); MEAN PLT VOLUME 8.9 fl (7.5-11.1)
[2021-04-17 08:50] LABS: HEMATOCRIT 30.4 % (35.4-49); MCH 31.7 pg (25.7-33.7); MCHC 33.4 g/dl (32.0-35.9); PLATELET COUNT 132 10^3/uL (134-434); RDW 13.3 % (11.9-15.9); WHITE BLOOD COUNT 11.6 K/mm3 (4.0-10.8)
[2021-04-17] MEDS: oxyCODONE HCL 5 MG TABLET PO PRN (10:45)
[2021-04-17] MEDS: PANTOPRAZOLE 40 MG TABLET PO SCH (10:46)
[2021-04-17] MEDS: MULTIVITAMINS (DAILY MVI) TABLET (FP) PO SCH (10:46)
[2021-04-17] MEDS: SENNOSIDES/DOCUSATE COMBO (SENNA PLUS) TABLET (UD) PO SCH (10:46)
[2021-04-17] MEDS: PREGABALIN 50 MG CAPSULE PO SCH (10:46)
[2021-04-17] MEDS: METOPROLOL TARTRATE 50 MG TABLET (FP) PO SCH (10:46)
[2021-04-17] MEDS: COLCHICINE 0.6 MG CAP PO SCH (11:02)
[2021-04-17 16:37] VITALS: BP 104/73; PULSE 80; TEMP 98.1
== END 2021-04-17 16:39 | disposition home health service (06) | DRG 470 ==
LOC: FM/S 06:51
PROVIDERS: ADMIT Orthopaedic Surgery; ATTEND Orthopaedic Surgery
PROC: 8E0W0CZ Robotic Assisted Procedure of Trunk Region, Open Approach (ICD-10-PCS; 2021-04-15)
PROC: 8E0WXBZ Computer Assisted Procedure of Trunk Region (ICD-10-PCS; 2021-04-15)
PROC: 0SR90JZ Replacement of Right Hip Joint with Synthetic Substitute, Open Approach (ICD-10-PCS; principal; 2021-04-15 10:28)
DX: M16.11 Unilateral primary osteoarthritis, right hip (principal); I10 Essential (primary) hypertension; E03.9 Hypothyroidism, unspecified; E11.9 Type 2 diabetes mellitus without complications; I25.10 Atherosclerotic heart disease of native coronary artery without angina pectoris; E78.5 Hyperlipidemia, unspecified; M25.551 Pain in right hip; M10.9 Gout, unspecified; Z98.61 Coronary angioplasty status
CPT/HCPCS: 36415; 73502-TC-RT-FY; 82962; 85027; 88305-TC; 88311-TC; 94760; 97010-GP; 97116-GP; 97163-GP; J0131